=== PATIENT | male | born 1975 | race Caucasian/White ===

== ENCOUNTER 2017-02-11 03:30 | Emergency (ER) | payer BC ==
--- NOTE | 2017-02-11 03:54 | ERNOTE ---
Abdominal HPI - General Chief Complaint: Abdominal Pain Time Seen by Provider: 02/11/17 03:46 Source: patient Exam Limitations: no limitations - Immun/Allergies/Home Medications Immunizatons: IMMUNIZATION HX Immunizations Up to Date Yes History of Influenza Vaccine Yes Allergies/Adverse Reactions: Allergies bupropion HCl [From Wellbutrin] Adverse Reaction (Mild, Verified 06/27/15 14:10) INSOMNIA Home Medications: HOME MEDICATIONS ALPRAZolam [Xanax] 0.25 mg PO TID PRN 06/27/15 [Last Taken Unknown] lamoTRIgine [Lamictal] 150 mg PO DAILY 02/11/17 [Last Taken Unknown] - History of Present Illness Narrative: Pt states he has had left sided abd pain for 2 days. Sometimes upper quad other times in the lower quad. Pt states it feels somewhat like he felt when he had a hernia but he has no bulging. Timing: getting worse, intermittent Quality: moderate, aching Activities at Onset: activity Prior Abdominal Problems: Present: similar symptoms - hernia Review of Systems - Review of Systems Constitutional: Absent: recent illness EYE: Present: no symptoms reported ENT: Present: no symptoms reported Gastrointestinal/Abdominal: Present: See HPI. Absent: nausea, vomiting, diarrhea, constipation Genitourinary: Absent: frequency, dysuria Musculoskeletal: Absent: back pain Skin: Present: no symptoms reported Neurological: Present: no symptoms reported Endocrine: Present: no symptoms reported - Patient's Past Medical History Patient History - Medical: Anxiety, Chronic Pain, Depression, Other Patient History - Cardiac/Respiratory: No pertinent hx Patient History - Cancer: No Hx of Cancer Patient History - Surgical Procedures: Vasectomy, Other, Hernia Repair Patient History - Other: None - Social History Living Situations: spouse Abuse History: No History of abuse Psych History: Hx of Anxiety, Hx of Depression Smoking Status: Never smoker Have you smoked in the past 12 months: No Do you dip or chew tobacco: No Alcohol Use: none Drug Use: none - Immunizations Immunizations Up to Date: Yes History of Influenza Vaccine: Yes Physical Exam - Physical Exam General Appearance: Present: wd/wn, alert, no apparent distress Head Exam: Present: normal inspection, no evidence of injury Eye Exam: Normal inspection: bilateral Neck: Present: normal inspection, supple, full range of motion Respiratory: Present: no respiratory distress, no accessory muscle use Cardiovascular/Chest: Present: regular rate, rhythm Gastrointestinal/Abdominal: Present: normal bowel sounds, tenderness - mild RUQ and RLQ. Absent: distended, guarding, rebound, hernia Back Exam: Present: normal inspection, normal range of motion Extremity Exam: Present: normal inspection, normal range of motion Neurological Exam: Present: alert, oriented, normal mood/affect Skin Exam: Present: normal color, warm/dry ED Progress - Results and Orders Patient's Lab Results:: I have reviewed the patient's lab results. Results and Orders: Laboratory Tests 02/11/17 02/11/17 02/11/17 03:44 03:44 03:45 WBC 6.6 Hgb 14.8 Hct 41.3 L Plt Count 222 Sodium 139 Potassium 4.0 Chloride 101 Carbon Dioxide 28.2 BUN 24 H Creatinine 1.04 Random Glucose 99 Calcium 9.2 Total Bilirubin 0.6 AST 19 ALT 30 Alkaline Phosphatase 37 L Total Protein 7.7 Albumin 4.6 Amylase 180 H Lipase 1403 H Urine Color Dark yellow Urine Appearance Slightly cloudy Urine pH 6.0 Ur Specific [place] 1.025 Urine Protein 15 H Urine Glucose (UA) Negative Urine Ketones Negative Urine Blood Negative Urine Nitrate Negative Urine Bilirubin Negative Prot Sulfosalicylic Acd Negative Urine Urobilinogen Normal Ur Leukocyte Esterase Negative Urine RBC 0-5 Urine WBC 0-5 Ur Epithelial Cells 0-5 Amorphous Sediment Few - 1+ Urine Bacteria None seen Urine Trichomonas Moderate - 2+ H Urine Culture Comments No culture indicated - Vital Signs Patient's Vital Signs:: I have reviewed the patient's vital signs. Vital Signs: Vital Signs 02/11/17 03:34 Temperature 37.1 C Pulse Rate 58 L Respiratory 16 Rate Blood Pressure 128/85 O2 Sat by Pulse 97 Oximetry - X-Ray X-Ray #1 X-Ray: abdomen Interpretation: Interp. by me X-ray Comments: Moderate stool retention throughout the colon. No a/f levels or other evidence of obstruction - CT/Ultrasound CT/Ultrasound Narrative: CT abd/pelvis with contrast: No CT abnormality of pancreas fatty liver. no bowel distension fecal retention Appendix within normal limits - Progress/Reassessment Chief Complaint: Abdominal Pain Progress Note-Subjective: 02/11/17 04:25 Spoke to the patient concerning his lab and xray results. He ate about 2 hours ago so I suggested CT abd/pelvis due to u/s would be less likely to get good results this soon after eating. Pt agrees to CT Departure - Departure Clinical Impression: Elevated pancreatic enzyme Constipation Qualifiers: Constipation type: other constipation type Qualified Code(s): K59.09 - Other constipation Disposition: Home Follow Up Needed Condition: Good Instructions: Constipation, Adult, [id number] Additional Instructions: See your regular doctor to follow up on your pancreatic enzyme elevation. You may use 1) miralax 1 scoop 2-3 times a day for 3-5 days OR 2) milk of magnesia 30mL twice a day for 1-2 days OR 3) half a bottle of magnesium citrate followed by the other half if no results in 6 hours, for your constipation. Referrals: Ulises Packer MD [Primary Care Provider] -
[2017-02-11 03:56] LABS: Hematocrit 41.3 % (42.0-52.0); Hemoglobin 14.8 gm/dL (13.5-18.0); Mean Cell Volume 83.6 fl (78-100); Mean Corpuscular Hgb Conc 35.8 g/dl (32-36); Mean Platelet Volume 8.5 fl (6.0-9.5); Neutrophil # 3.8 K/mm3 (1.3-6.0); Neutrophil % 57.8 % (42-75.0); Platelet Count 222 K/mm3 (150-450); Red Blood Count 4.94 M/mm3 (4.7-6.0); Red Cell Distribution Width 12.5 % (11.5-14.0); White Blood Count 6.6 K/mm3 (4.0-10.5)
[2017-02-11 04:00] LABS: Urine Bilirubin Negative (NEGATIVE); Urine Blood Negative /ul (NEGATIVE); Urine Ketone Negative (NEGATIVE); Urine Nitrite Negative (NEGATIVE); Urine Protein 15 mg/dL (NEGATIVE); Urine Specific Gravity 1.025 SP.GR. (1.005-1.030); Urine Urobilinogen Normal (NORMAL)
[2017-02-11 04:08] LABS: Urine Amorphous Sediment Few - 1+ (NONE-FEW); Urine Appearance Slightly Cloudy; Urine Bacteria None Seen; Urine Color Dark Yellow; Urine RBC 0-5 /hpf (0-5); Urine Trichomonas Moderate - 2+; Urine WBC 0-5 /hpf (0-5)
[2017-02-11 04:12] LABS: Albumin * 4.6 gm/dl (3.4-5.0); Anion Gap 13.8 mmol/L (6.8-13.8); BUN/Creatinine Ratio 23.1 (9.0-21.6); Bilirubin, Total 0.6 mg/dL (0.0-1.1); Ca. Corrected For Albumin 8.4 mg/dL (8.4-10.2); Calcium * 9.2 mg/dL (7.9-10.9); Carbon Dioxide 28.2 mmol/L (24-32.6); Total Protein 7.7 gm/dL (6.2-8.2)
[2017-02-11] MEDS ORDERED: DIATRIZOATE MEGLUMINE, SODIUM 30 ML BTL PO ONE (04:24)
[2017-02-11] MEDS ORDERED: DIATRIZOATE MEGLUMINE, SODIUM 30 ML BTL ONE (04:25)
[2017-02-11 06:13] VITALS: BP 121/81
== END 2017-02-11 06:49 | disposition home or self-care (01) ==
LOC: ER 03:30
DX: K59.09 Other constipation (principal); R74.8 Abnormal levels of other serum enzymes; F41.9 Anxiety disorder, unspecified; F32.9 Major depressive disorder, single episode, unspecified